=== PATIENT | male | born 1990 | race Caucasian/White ===

== ENCOUNTER 2017-08-03 16:57 | Outpatient (RCR) | payer BC, OTHER, SELFPAY ==
--- NOTE | 2017-08-03 17:45 | HMH.PTOPEV ---
Rehab Outpatient Evaluation Rehab OP Evaluation Start: 08/03/17 16:59 Freq: Status: Active Protocol: Document 08/03/17 17:32 ELIGIOASHWINI (Rec: 08/03/17 17:43 [email or web address] [id number]) Electronically Signed By Oliverio Kemp, NITESH 08/03/17 17:32 Outpatient Therapy Subjective History Subjective History This is the initial Physical Therapy evaluation for Evan Decker. Pt is a 27 y/o male referred to PT for c/o Thoracolumbar pain. 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 Pt reports back pain for years but reports increase over last few months. 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 Chief Complaint Pain Symptom Type Ache Sharp Symptoms Relieved By Prescription Meds Symptoms Aggravated By Bending/Stooping Physical Activity Prior Functional Limitations None Current Functional Limitations Sleeping Bending/Stooping Symptom Description Constant but Variable Pain at Rest Activity Dependent Level of pain today (0-10) 5 Pain scale - at its best (0-10) 2 Pain scale - at its worst (0-10) 8 Lumbopelvic Eval Posture Thoracic Spine Posture Standing Position Increased Kyphosis Lumbar Spine Posture Standing Position Flattened Assistive device Assistive Devices None / NA Gait Observation General Gait Pattern Observation No Deviations/Normal Palapation tenderness bilateral thoracic spinal tenderness Yes lumbar spinal tenderness Yes paraspinal tenderness Yes buttock tenderness No tenderness over symphysis pubis No Lumbar/Sacral Palpation Findings Tenderness Lumbar/Sacral Palpation Overall Comment TTP along bilateral parapinal mm in whole thoracolumbar range Range of Motion Lumbar Spine ROM Limitations Pain Lumbar Spine ROM Reason Not Measured Within Functional Limits DTR Rt Patellar 1+ Lt Patellar 1+ Altered Sensation Bilateral Comment all normal Special Tests Lumbar Spine Screen Negative Anterior/Posterior Rib Compression Test Negative Right Rib Inspiration/Expiration Breathing Negative Test Forward Bending Test- Standing Negative Left Negative Right
== END 2017-08-03 17:00 | disposition home or self-care (01) ==
LOC: PT 16:57
PROVIDERS: Family Provider Family Medicine; Visit Provider Family Medicine
DX: M42.00 Juvenile osteochondrosis of spine, site unspecified (principal)

== ENCOUNTER → 2018-03-22 16:49 | Outpatient (CLI) | payer OTHER, SELFPAY ==
--- NOTE | 2018-03-22 16:55 | XR_ITS ---
XR foot RT min 3V HISTORY: ITS.REASON: FOOT PAIN, RIGHT ORDERING PHYSICIAN: PAULINA Martinez PATIENT AGE: 27 years COMPARISON: None FINDINGS: No fracture or dislocation. No lytic or blastic change. There is normal mineralization.. The joint spaces are well-preserved. No significant degenerative/arthritic changes. No erosive changes evident. IMPRESSION: Negative, no acute finding
== END ==
PROVIDERS: PCP Physician Assistant; Visit Provider Physician Assistant
DX: M79.671 Pain in right foot (principal)
CPT/HCPCS: 73630

== ENCOUNTER → 2018-06-05 09:33 | Outpatient (POV) | payer OTHER, SELFPAY | PROVIDERS: Visit Provider Nurse Practitioner Acute Care | DX: Z00.00 Encounter for general adult medical examination without abnormal findings (principal) ==

== ENCOUNTER 2019-11-22 00:12 | Emergency (ER) | payer OTHER, SELFPAY ==
[2019-11-22 00:14] VITALS: BP 177/113; PULSE 85; RESP 16; TEMP 37.3; O2SAT 99; BMI 27.9
--- NOTE | 2019-11-22 00:43 | HMH.EDEYEP ---
ED Disposition Clinical Impression: Welders' keratitis of both eyes Disposition: Home, Self-Care Condition on Discharge: Good Instructions: DI for Eye Pain Additional Instructions: call dr guerra this am for follow up Referrals: Graham Sun MD [Primary Care Provider] - - Critical Care Critical Care Time: No Attestation: On 11/22/19, the high probability of a clinically significant, sudden or life threatening deterioration of the following system(s) required my full and direct attention, intervention and personal management. The time I documented below is in addition to time spent performing reported procedures but includes the following listed in this critical care notation. Medical Decision Making - Medical Records Medical records reviewed: Yes: I reviewed the patient's medical records. - Henry Inquiry Pt receiving controlled substance: No Vital Signs: 11/22/19 00:14 Temperature 99.1 F Temperature Source Oral Pulse Rate [Left Radial] 85 Respiratory Rate 16 Blood Pressure [Right Arm] 177/113 H Blood Pressure Mean [Right Arm] 134 Blood Pressure Source [Right Arm] Automatic Cuff Blood Pressure Position [Right Arm] Sitting 02 Sat by Pulse Oximetry 99 Oxygen Delivery Method Room Air - Lab Data Lab results reviewed: Yes: I reviewed the patient's lab results. Eye Problem HPI - General Chief complaint: Eye Problems Stated complaint: Welding;flashburn eyes Time Seen by Provider: 11/22/19 00:43 Mode of Arrival: Ambulatory Source of Information: Patient, Spouse, Medical Record Limitations: No Limitations Description of Symptoms (Recalled from ER Triage Doc. 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 pt stated at first it was just sore and he could still see but when he went home and progessively got worse and now he isnt able to se fully see and states his eyes feel like sandpaper - History of Present Illness HPI Narrative: welders injury to bilat eyes with progressive pain chief complaint: eye pain Onset (ago): hour(s) Location: both eyes Eye Symptoms: photophobia Place: home Mechanism: UV exposure Severity: moderate Associated symptoms: none Treatments Prior to Arrival: none - Related Data Allergies Allergy/AdvReac Type Severity Reaction Status Date / Time No Known Allergies Allergy Verified 11/22/19 00:33 [facility] History - Hepatitis A Screen Drug use history?: Yes High risk sexual behaviors?: No History of sexually transmitted infection?: No Currently employed?: No Childcare worker?: No Do you have indoor plumbing?: Yes Do you have electricity?: Yes Attestation statement:: This patient has been screened for Hepatitis A risk factors. I have reviewed the patient's past medical history: Yes Medical History: Denies:: Diabetes Mellitus Type 1, Diabetes Mellitus Type 2, Internal Pacemaker, Lung Disease, Seizures Other Medical History: Denies: Blood Transfusion Reaction Other Surgeries: No: Pacemaker - Social History Smoking Status: Current every day smoker Tobacco Type: cigarettes # Packs/Day (cigarettes): 1 Alcohol Intake: current Occupational Status: employed ROS Obtained: Yes All systems reviewed & no additional complaints - Constitutional Constitutional: Denies fever(s) - Eyes Eyes: Reports as per HPI, Reports change in vision, Denies eye discharge, Reports photophobia - ENT Ears, Nose, Mouth, and Throat: Denies dizziness - Cardiovascular Cardiovascular: Denies chest pain - Respiratory Respiratory: No cough - Gastrointestinal Gastrointestingal: Denies: abdominal pain - Genitourinary Male Genitourinary: Denies hematuria - Musculoskeletal Musculoskeletal: Denies joint pain, Denies joint swelling - Integumentary/Breasts Skin/Breast: Denies rash - Neurologic Neurologic: Denies focal weakness, Denies seizure-like activity Physical Exam - General Gene
[2019-11-22 00:49] VITALS: BP 151/103; PULSE 62; RESP 18; O2SAT 99
[2019-11-22 01:23] VITALS: BP 167/101; PULSE 82; RESP 16; TEMP 36.7; O2SAT 98
== END 2019-11-22 01:26 | disposition home or self-care (01) ==
PROVIDERS: Emergency Provider Emergency Medicine; PCP Family Medicine
DX: H16.133 Photokeratitis, bilateral (principal); F17.210 Nicotine dependence, cigarettes, uncomplicated; Y99.0 Civilian activity done for income or pay; Y92.63 Factory as the place of occurrence of the external cause
CPT/HCPCS: 99282

== ENCOUNTER 2021-02-11 11:29 | Emergency (ER) | payer OTHER, SELFPAY ==
[2021-02-11 13:15] VITALS: BP 136/105; PULSE 80; RESP 20; TEMP 37.2; O2SAT 98; BMI 26.5
[2021-02-11 13:26] VITALS: BP 135/94; PULSE 80; RESP 20; TEMP 37.2
--- NOTE | 2021-02-11 13:30 | HMH.EDUTC ---
[facility] [place] Dis[place] Clinical Impression: Encounter for laboratory testing for COVID-19 virus, Viral syndrome Disposition: Home, Self-Care Condition on Discharge: Good Instructions: DI for COVID-19 (Suspected or Confirmed ), Coronavirus Disease 2019, Preventing the Spread of Coronavirus Discharge Instructions Additional Instructions: *Monitor Temp, Over the counter Motrin or Tylenol as directed/as needed Tylenol every 4 hours and Motrin every 6 hours (as long as your family doctor has told you that you can take it) for fever or pain. and straight to ER if unable to lower temp less than 101.0 after medication given Follow up IMMEDIATELY for new or worsening symptoms or no Noticeable improvement over the next 48-72 hours. 911 for difficulty breathing or swallowing You were tested for today for COVID19 your test result should be back in the next 24-48 hours, you may call to the [facility] to see if your test results are back in the next 48 hours [phone] [facility] hours are 9am-9pm You was given a handout with instructions for Self Quarantine and Self isolation for while you wait on test results and what to do if they are positive If you are positive the Health Dept will be contacting you also Make sure to take your Vitamins Vit. C Vit D and Zinc if you can take them Referrals: Graham Sun MD [Primary Care Provider] - As needed Forms: Work/School Release Time of Disposition: 13:38 Medical Decision Making - Henry Inquiry Pt receiving controlled substance: No Henry was queried for this patient: No Vital Signs: 02/11/21 13:15 02/11/21 13:26 Temperature 98.9 F 98.9 F Temperature Source Oral Pulse Rate 80 Pulse Rate [Left] 80 Respiratory Rate 20 20 Blood Pressure 135/94 H Blood Pressure [Right Arm] 136/105 H Blood Pressure Mean [Right Arm] 115 02 Sat by Pulse Oximetry 98 Orders (Tests/Meds): ORDERS Category Date Time Status Covid-19 Nasal PCR ([facility]) Routine Lab 02/11/21 13:08 Received [facility] [place] HPI - General Stated complaint: covid test Time Seen by Provider: 02/11/21 13:30 Mode of Arrival: Ambulatory Source of Information: Patient Limitations: No Limitations Description of Symptoms (Recalled from Triage Doc. by RN): pt c/o of a cough. pts indirectly exposed. HEENT Symptoms (Recalled from RN notes): No Resp Symptoms (Recalled from RN notes): Yes (productive cough) Skin Symptoms (Recalled from RN notes): No MS Symptoms (Recalled from RN notes): No Functional Status (Recalled from RN notes): na - History of Present Illness Provider Complaint: Patient state that he was recently around someone that was around another person that tested positive for COVID State that now he is having some nasal congestion and cough and felt feverish State that he vomited x 1 on Tuesday but not vomited since State that his work told him he needed to come in and get tested for COVID - Related Data Allergies Allergy/AdvReac Type Severity Reaction Status Date / Time No Known Allergies Allergy Verified 11/22/19 00:33 - Worker's Comp Is this a Worker's Comp case?: No [facility] History - Hepatitis A Screen Drug use history?: No High risk sexual behaviors?: No History of sexually transmitted infection?: No Currently employed?: No Childcare worker?: No Do you have indoor plumbing?: Yes Do you have electricity?: Yes Attestation statement:: This patient has been screened for Hepatitis A risk factors. I have reviewed the patient's past medical history: Yes Medical History: Denies:: Diabetes Mellitus Type 1, Diabetes Mellitus Type 2, Internal Pacemaker, Lung Disease, Seizures Other Medical History: Denies: Blood Transfusion Reaction Other Surgeries: No: Pacemaker - Social History Smoking Status: Current every day smoker Tobacco Type: cigarettes # Packs/Day (cigarettes): 1 Alcohol Intake: current Occupational Status: employed ROS Obtained: Yes All systems reviewed & no additional complaints, Yes Systems reviewed as ap
--- NOTE | 2021-02-12 09:50 | PC.NURSE ---
PT NOTIFIED OF POSITIVE COVID TEST RESULTS
== END 2021-02-11 13:43 | disposition home or self-care (01) ==
PROVIDERS: Emergency Provider Nurse Practitioner; PCP Family Medicine
DX: U07.1 COVID-19 (principal); F17.210 Nicotine dependence, cigarettes, uncomplicated
CPT/HCPCS: 99202; G0463; U0003

== ENCOUNTER → 2022-03-03 17:24 | Outpatient (CLI) | payer OTHER, SELFPAY ==
[2022-03-03 18:57] LABS: Basophils # 0.1 K/mm3 (0-0.2); Basophils % 1.4 % (0.1-2.0); Eosinophils # 0.4 K/mm3 (0.0-0.4); Eosinophils % 5.2 % (0.1-12.0); Hematocrit 46.3 % (42.0-52.0); Hemoglobin 15.3 g/dL (14.1-18.0); Lymphocytes # 1.7 K/mm3 (0.7-4.5); Lymphocytes % 23.5 % (10-50); Mean Corpuscular Hemoglobin 31.6 pg (27.0-31.2); Mean Corpuscular Volume 95.7 fl (80-94); Mean Platelet Volume 8.8 fl (7.4-10.4); Monocytes # 0.4 K/mm3 (0.1-1.0); Monocytes % 5.5 % (1.7-9.3); Neutrophils # 4.7 K/mm3 (1.8-7.8); Neutrophils % 64.4 % (37.0-80.0); Platelet Count 194 K/mm3 (142-424); Red Blood Count 4.84 M/mm3 (4.60-6.20); Red Cell Distribution Width 12.4 % (11.5-17.5); White Blood Count 7.3 K/mm3 (4.8-10.8)
== END ==
PROVIDERS: PCP Family Medicine; Visit Provider Physician Assistant
DX: Z20.822 Contact with and (suspected) exposure to COVID-19 (principal)
CPT/HCPCS: 36415; 85025; C9803; U0003; U0005

== ENCOUNTER 2024-06-29 13:44 | Outpatient (CLI) | payer OTHER, SELFPAY ==
--- NOTE | 2024-06-29 13:51 | XR_ITS ---
FINAL REPORT CLINICAL HISTORY: Right shoulder pain. Softball injury. COMPARISON: None FINDINGS: RIGHT SHOULDER Three views of the right shoulder were obtained. The acromion is slightly inferiorly displaced relative to the distal clavicle, which may be related to underlying ligamentous injury. There is no evidence of fracture. The glenohumeral joint is intact. The soft tissues are unremarkable. IMPRESSION: Displaced acromion relative to the distal clavicle, possible underlying ligamentous injury. Reviewed, Interpreted and Dictated by Agustin Burleson MD Transcribed by Crissy Morgan Authenticated and [facility]
== END 2024-06-29 23:59 | disposition home or self-care (01) ==
PROVIDERS: PCP Physician Assistant; Visit Provider Physician Assistant
DX: M25.511 Pain in right shoulder (principal)
CPT/HCPCS: 73030

== ENCOUNTER 2024-07-19 15:05 | Outpatient (CLI) | payer OTHER, SELFPAY ==
--- NOTE | 2024-07-19 15:06 | MR_ITS ---
PROCEDURE INFORMATION: Exam: MR Right Upper Extremity Joint Without Contrast; Shoulder Exam date and time: 07/19/2024 3:58 PM Age: 33 years old Clinical indication: Pain; Shoulder; Right; Additional info: RT shoulder pain TECHNIQUE: Imaging protocol: Magnetic resonance imaging of the right upper extremity without contrast. Exam focused on the shoulder. COMPARISON: CR XR SHOULDER RT MIN 2V 06/29/2024 1:57 PM FINDINGS: Bones/joints: No fracture or suspicious marrow signal. Good preservation of articular cartilage. Type 1 acromion process. Glenoid labrum: Unremarkable. No evidence of tear. Supraspinatus tendon: Unremarkable. No evidence of tear. Infraspinatus tendon: Unremarkable. No evidence of tear. Subscapularis tendon: Unremarkable. No evidence of tear. Teres minor tendon: Unremarkable. No evidence of tear. Tendon of biceps brachii: Unremarkable. No evidence of tear. Glenohumeral ligaments: Unremarkable. Soft tissues: Unremarkable. Other findings: No internal derangement. Otherwise unremarkable. IMPRESSION: 1. No fracture or suspicious marrow signal. 2. No internal derangement. 3. Otherwise unremarkable.
--- NOTE | 2024-07-19 15:16 | XR_ITS ---
FINAL REPORT CLINICAL HISTORY: r/o metal in eyes for mri COMPARISON: None FINDINGS: 2 views were obtained. There is no evidence of metal in the eyes. No acute fracture or malalignment. The paranasal sinuses are well aerated. IMPRESSION: No evidence of metal. Reviewed, Interpreted and Dictated by Agustin Burleson MD Transcribed by Crissy Morgan Authenticated and [facility]
== END 2024-07-19 23:59 | disposition home or self-care (01) ==
LOC: RAD 15:06
PROVIDERS: PCP Physician Assistant; Visit Provider Physician Assistant
DX: M25.511 Pain in right shoulder (principal); M24.111 Other articular cartilage disorders, right shoulder
CPT/HCPCS: 70200; 73221